=== PATIENT | male | born 1990 | race Hispanic/Latino ===

== ENCOUNTER 2020-04-01 13:07 | Emergency (ER) | payer OTHER ==
[~2020-04-01] VITALS: Ht 180.3 cm; Wt 81.6 kg
== END 2020-04-01 14:18 | disposition home or self-care (01) ==
LOC: ED 13:07
DX: S01.01XA Laceration without foreign body of scalp, initial encounter (principal); W10.9XXA Fall (on) (from) unspecified stairs and steps, initial encounter
CPT/HCPCS: 99283

== ENCOUNTER 2024-01-16 20:59 | Emergency (ER) | payer OTHER ==
[~2024-01-16] VITALS: Ht 180.3 cm; Wt 99.0 kg
[2024-01-16] MEDS ORDERED: CIPROFLOXACIN 500 MG TAB PO ONE (21:30)
[2024-01-16] MEDS ORDERED: DIPHTH,PERTUSS(ACELL),TET VAC 0.5 ML SYRINGE IM ONE (21:30)
[2024-01-16] MEDS ORDERED: CIPRO500 MG PO (21:32)
[2024-01-16 21:58] VITALS: BP 147/84
== END 2024-01-16 21:58 | disposition home or self-care (01) ==
LOC: ED 20:59
DX: S91.331A Puncture wound without foreign body, right foot, initial encounter (principal); W45.0XXA Nail entering through skin, initial encounter; Z23 Encounter for immunization
CPT/HCPCS: 73630; 90715